=== PATIENT | female | born 1970 | race Caucasian/White ===

== ENCOUNTER → 2017-10-28 | Outpatient (REF) | payer OTHER ==
[2017-11-02 14:13] LABS: HPV HYBRID CAPTURE II Negative (Negative)
== END ==
LOC: M SFHCWAGY 13:15
DX: Z12.4 Encounter for screening for malignant neoplasm of cervix (principal); Z12.31 Encounter for screening mammogram for malignant neoplasm of breast

== ENCOUNTER → 2017-10-28 | Outpatient (CLI) | payer OTHER | LOC: M WHC 13:05 | DX: Z12.31 Encounter for screening mammogram for malignant neoplasm of breast (principal) | CPT/HCPCS: 77067 ==

== ENCOUNTER → 2018-11-01 | Outpatient (CLI) | payer OTHER ==
--- NOTE | 2018-11-01 10:30 | REPMRS ---
Patient History The patient states she had a clinical breast exam in 11/08 No known family history of cancer. 3D TOMOSYNTHESIS WAS PERFORMED. Digital Woman Screen Mammo: November 01, 2018 - Exam #: [id number] Bilateral CC and MLO view(s) were taken. Technologist: Kathia Mckinney, Technologist Prior study comparison: October 28, 2017, digital woman screen mammo performed at [facility]. FINDINGS: The breast tissue is heterogeneously dense. This may lower the sensitivity of mammography. There has been no change in the appearance of the mammogram from the prior studies. There is a moderate amount of residual fibroglandular tissue which is fairly symmetric. There is no interval development of dominant mass, areas of architectural distortion, or clustered microcalcification typical of malignancy. Assessment: BI-RADS/ACR category 1 mammogram. Negative Mammogram. Recommendation Routine screening mammogram in 1 year (for women over age 40). This mammogram was interpreted with the aid of an FDA-approved computer-aided dectection system. Electronically Signed By: Enrique Hawkins MD 11/01/18 [id number]
== END ==
LOC: M WHC 09:03
PROVIDERS: ATTEND Nurse Practitioner Women's Health
DX: Z12.31 Encounter for screening mammogram for malignant neoplasm of breast (principal)

== ENCOUNTER → 2019-11-15 | Outpatient (CLI) | payer OTHER ==
--- NOTE | 2019-11-15 12:17 | REP ---
BILATERAL SCREENING DIGITAL MAMMOGRAM WITH 3D TOMOSYNTHESIS: There are no palpable abnormalities or other breast complaints. The the patient states she had a clinical breast examination 2019. The Tyrer-Cuzick Lifetime Breast Cancer Risk Score is: 11.6% . Comparison is 10/28/2017. There are scattered areas of fibroglandular density. There is no dominant mass, micro calcific cluster or architectural distortion that would indicate malignancy. There are no additional findings on 3D tomosynthesiss. There is no change from the prior study. Impression: BIRADS/ACR category 1 mammogram. Negative. Recommendation: Routine annual screening mammography. This mammogram was interpreted with the aid of a FDA approved computer-aided detection system. A. Negative mammogram reports should not delay biopsy if a dominant or clinically suspicious mass is present. B. Not all breast cancers are identified by mammography or tomosynthesis. C. Adenosis and dense breasts may obscure an underlying neoplasm. Patient letter M1. Electronically Signed by Enrique Mascorro MD 11/15/2019 12:09 P
== END ==
LOC: M WHC 09:01
PROVIDERS: ATTEND Nurse Practitioner Women's Health
DX: Z12.31 Encounter for screening mammogram for malignant neoplasm of breast (principal)

== ENCOUNTER → 2020-11-19 | Outpatient (REF) | payer OTHER | LOC: M SFHCWAGY 14:09 | PROVIDERS: ATTEND Nurse Practitioner Women's Health | DX: Z12.4 Encounter for screening for malignant neoplasm of cervix (principal) | CPT/HCPCS: 87624; G0123 ==

== ENCOUNTER → 2020-11-19 | Outpatient (CLI) | payer OTHER ==
--- NOTE | 2020-11-19 11:49 | REP ---
INDICATION: LEON SCR MAMMO Z12.31. COMPARISON: 11/15/2019 as well as other prior exams. TECHNIQUE: MLO and CC views bilateral breasts performed with tomosynthesis. FINDINGS: Mild scattered fibroglandular tissue is again noted bilaterally. Possible oval nodular density is seen laterally in the right breast and somewhat inferiorly, measuring about 1.4 cm in diameter maximally. It is not definitely seen in the MLO projection. Otherwise no new mass or clustered microcalcifications are seen bilaterally. The Volpara volumetric breast density pattern is B. IMPRESSION: BIRADS/ACR category 0, incomplete. Oval nodular density inferolateral right breast approximately 1.4 cm in maximum diameter. Recommend spot compression view in the CC projection as well as a right mL tomographic sequence. Ultrasound may also be necessary. This patient's Tyrer-Cuzick lifetime breast cancer risk assessment score is 11.4%. This mammogram was interpreted with the aid of an FDA-approved computer-aided detection system. The patient states she had a clinical breast exam in November 2020. The patient letter being requested is M0. RECOMMENDATION: Recommend spot compression views and ultrasound right breast. <Electronically signed by Enrique Hawkins > 11/19/20 [id number]
== END ==
LOC: M WHC 09:02
PROVIDERS: ATTEND Nurse Practitioner Women's Health
DX: N63.14 Unspecified lump in the right breast, lower inner quadrant (principal)

== ENCOUNTER → 2020-11-25 | Outpatient (CLI) | payer OTHER ==
--- NOTE | 2020-11-25 17:26 | REP ---
INDICATION: ADDL VIEWS/RIGHT BREAST NODULE; RIGHT BREAST NODULE. Screening mammography November 19, 2020 was BI-RADS category 0 because of a 1.4 cm density projecting laterally in the right breast on craniocaudal view. COMPARISON: Comparison mammography November 19, 2020, November 15, 2019, and November 01, 2018. TECHNIQUE: Magnified focal spot-compression CC, mL, and MLO views of the right breast are obtained. A true mediolateral view with 3D tomography is carried out. Targeted right breast sonography is performed. This mammogram was interpreted with the aid of an FDA-approved computer-aided detection system. FINDINGS: Magnified focal spot-compression images do not reliably demonstrate a mass in the lateral aspect of the right breast. A nodular opacity is seen on 1 of the CC views. This area appears to compress away with small paddle magnified spot views in the CC, true mL, and MLO projection. No spiculation or microcalcification is observed. Mammography images otherwise unremarkable. . Targeted ultrasound: Targeted right breast sonography is performed from 6:00 to 12:00 laterally. Fairly homogeneous predominantly fat relative placed background echotexture is seen. No cyst or mass is observed. No suspicious sonographic finding. IMPRESSION: BIRADS/ACR category 3 probably benign right breast mammographic and sonographic findings. Nonreproducible mammographic finding. Probably summation shadow. Unremarkable BI-RADS category 1 left breast mammogram. This patient's Tyrer-Cuzick lifetime breast cancer risk assessment score is 11.4%. RECOMMENDATION: Repeat right breast mammography and sonography in 6 months time.. The patient letter being requested is M 3. <Electronically signed by Angel Paulino > 11/25/20 [id number]
== END ==
LOC: M WHC 14:25
PROVIDERS: ATTEND Nurse Practitioner Women's Health
DX: Z12.31 Encounter for screening mammogram for malignant neoplasm of breast (principal); R92.8 Other abnormal and inconclusive findings on diagnostic imaging of breast
CPT/HCPCS: 76642; 77065; G0279

== ENCOUNTER → 2021-06-30 | Outpatient (CLI) | payer OTHER ==
--- NOTE | 2021-06-30 09:32 | REP ---
INDICATION: CAT 3 MAMMO RIGHT BREAST. COMPARISON: 11/25/2020 as well as other prior exams. TECHNIQUE: MLO, mL and CC views right breast performed with tomosynthesis. FINDINGS: Mild scattered fibroglandular density is stable. The parenchymal pattern is unchanged since at least 2018. No mass or nodule is seen. No clustered microcalcifications are seen. IMPRESSION: BIRADS/ACR category 2, benign. No mass or clustered microcalcifications. Volpara breast density B. [facility] lifetime risk of breast cancer 11.4%. This mammogram was interpreted with the aid of an FDA-approved computer-aided detection system. The patient letter being requested is M 1. RECOMMENDATION: Repeat bilateral screening mammography recommended in November 2021. <Electronically signed by Enrique Hawkins > 06/30/21 [id number]
== END ==
LOC: M WHC 08:42
PROVIDERS: ATTEND Nurse Practitioner Women's Health
DX: R92.8 Other abnormal and inconclusive findings on diagnostic imaging of breast (principal)
CPT/HCPCS: 77065; G0279

== ENCOUNTER → 2021-11-20 | Outpatient (CLI) | payer OTHER | LOC: M WHC 08:46 | PROVIDERS: ATTEND Advanced Practice Midwife | DX: Z12.31 Encounter for screening mammogram for malignant neoplasm of breast (principal) ==

== ENCOUNTER → 2021-11-20 | Outpatient (CLI) | payer OTHER | LOC: M WHC 08:02 | PROVIDERS: ATTEND Advanced Practice Midwife | DX: Z12.31 Encounter for screening mammogram for malignant neoplasm of breast (principal) ==